=== PATIENT | male | born 1985 | race American Indian/Alaskan Native ===

== ENCOUNTER 2016-11-15 10:41 | Emergency (ER) | payer OTHER ==
--- NOTE | 2016-11-15 11:16 | Emergency Department Report ---
Entered by RONALD LONGORIA, acting as scribe for MICHELLE SINGH NP. Chief Complaint: Abdominal Pain Stated Complaint: LOWER BACK/STOMACH PAIN Time Seen by Provider: 11/15/16 11:07 - HPI History of Present Illness: 31 y/o male, nontoxic, well nourished in appearance, no acute signs of distress presents with intermittent lower back pain, flank pain bilaterally and abd pain that started 3 weeks ago. Pt denies neck stiffness, fever, chills, chest pain, SOB, ZAMORA or dizziness, numbness, tingling. - ROS Review of Systems: Pt notes lower back pain, bilateral flank pain, abd pain Pt denies neck stiffness, fever, chills, chest pain, SOB, ZAMORA or dizziness, numbness, tingling. - Exam Vital Signs: Vital Signs 11/15/16 10:47 Temperature 98.0 F Pulse Rate 71 Respiratory 17 Rate Blood Pressure 123/71 O2 Sat by Pulse 100 Oximetry Physical Exam: Constitutional: Non toxic appearing, NAD. Cardiovascular: Normal rate and rhythm with normal S1/S2 sounds. Respiratory: No respiratory distress. Lung sounds clear to auscultation bilaterally. Abdomen: Soft, nontender, and nondistended. Positive bowel sounds. No hepatosplenomegaly was noted. No guarding or rebound tenderness, negative epigastric bruit. Negative psoas sign, negative kc sign, negative McBurneys sign. Back: No CVA, vertebral or paraspinal tenderness. ROM intact. MSE screening note: Focused history and physical exam performed. Due to findings the following was ordered: Amylase, BMP, CBC, Lipase, UA. ED Disposition for MSE Condition: Stable This documentation as recorded by the scribe,RONALD LONGORIA,accurately reflects the service I personally performed and the decisions made by FRANCISCO lagunas MARTIN, NP.
[2016-11-15 11:29] LABS: Basophils % (Auto) 0.5 % (0.0-1.8); Eosinophils % (Auto) 0.7 % (0.0-4.3); Hematocrit 39.3 % (35.5-45.6); Hemoglobin 12.2 gm/dl (11.8-15.2); Mean Corpuscular HGB Conc 31 % (32-34); Platelet Count 162 K/mm3 (140-440); Red Cell Distribution Width 15.8 % (13.2-15.2); White Blood Count 4.3 K/mm3 (4.5-11.0)
[2016-11-15 11:32] LABS: Mean Corpuscular Hemoglobin 21 pg (28-32); Mean Corpuscular Volume 68 fl (84-94)
[2016-11-15 11:45] LABS: Amylase 57 units/L (27-131); Anion Gap 16 mmol/L; BUN/Creatinine Ratio 9.09; Blood Urea Nitrogen 10 mg/dL (9-20); Carbon Dioxide 26 mmol/L (22-30); Chloride 104.4 mmol/L (98-107); Glucose 97 mg/dL (75-100); Lipase 15 units/L (13-60); Potassium 4.7 mmol/L (3.6-5.0); Sodium 142 mmol/L (137-145)
[2016-11-15] MEDS ORDERED: TORADOL IM ONE (12:56)
[2016-11-15 12:58] LABS: Bilirubin,Urine NEG (Negative); Blood,Urine NEG (Negative); Ketones,Urine NEG (Negative); Leukocyte Esterase,Urine NEG (Negative); Mucus,Urine FEW /HPF; Nitrite,Urine NEG (Negative); Protein,Urine <15 mg/dL mg/dL (Negative); Urobilinogen,Urine < 2.0 mg/dL (<2.0)
--- NOTE | 2016-11-15 13:33 | XRay Report ---
ABDOMEN, 2 views: History: Abdominal pain. There is no evidence of free air beneath the diaphragms. The gas pattern within the abdomen is unremarkable. There is no evidence of bowel dilatation, significant air-fluid levels, or pathologic calcifications. Moderate stool is present throughout the colon. IMPRESSION: Mild constipation.
--- NOTE | 2016-11-15 13:56 | Emergency Department Report ---
HPI - General Chief Complaint: Abdominal Pain Time Seen by Provider: 11/15/16 12:29 - HPI HPI: This is a 31-year-old Afro-[place] male presents to the emergency department with complaint of bilateral lower back pain and occasionally some radiation towards the flanks is been going on for the past 3 weeks. He denies any vomiting, fever, dysuria, constipation, diarrhea, penile discharge. He denies any numbness or paresthesias or any neurological deficits. He has not taken anything for symptoms prior to presentation. He has a past medical history of asthma. No recent travel or sick contacts at home. 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 He denies any chest pain, shortness of breath , lower extremity swelling. He does not have a primary care physician. ED Past Medical Hx - Past Medical History Hx Asthma: Yes - Surgical History Past Surgical History?: No - Social History Smoking Status: Never Smoker Substance Use Type: Alcohol - Medications Home Medications: Home Medications Medication Instructions Recorded Confirmed Last Taken Type ALBUTEROL Inhaler [Proair] 2 puff IH QID PRN 11/15/16 11/15/16 Unknown History ED Review of Systems ROS: Stated complaint: LOWER BACK/STOMACH PAIN Other details as noted in HPI Comment: All other systems reviewed and negative Constitutional: denies: chills, fever Eyes: denies: eye pain, eye discharge, vision change ENT: denies: ear pain, throat pain Respiratory: denies: cough, shortness of breath, wheezing Gastrointestinal: denies: vomiting, diarrhea Genitourinary: denies: urgency, dysuria Musculoskeletal: back pain. denies: arthralgia, myalgia Skin: denies: rash, lesions Neurological: denies: headache, weakness, paresthesias Physical Exam - Physical Exam Vital Signs: Vital Signs 11/15/16 11/15/16 10:47 12:12 Temperature 98.0 F Pulse Rate 71 Respiratory 17 18 Rate Blood Pressure 123/71 O2 Sat by Pulse 100 Oximetry Physical Exam: GENERAL: The patient is well-developed well-nourished. HEENT: Normocephalic. Atraumatic. Extraocular motions are intact. Patient has moist mucous membranes. Pupils equal reactive to light bilaterally. NECK: Supple. Trachea is midline. CHEST/LUNGS: Clear to auscultation. There is no respiratory distress noted. HEART/CARDIOVASCULAR: Regular. There is no tachycardia. There is no gallop rub or murmur. ABDOMEN: Abdomen is soft, nontender. Patient has normal bowel sounds. There is no abdominal distention. SKIN: Skin is warm and dry. NEURO: The patient is awake, alert, and oriented. The patient is cooperative. The patient has no focal neurologic deficits. The patient has normal speech and gait. MUSCULOSKELETAL: There is no tenderness or deformity. There is no limitation range of motion. There is no evidence of acute injury. Muscle strength 5 out of 5 upper and lower extremities including EHL. No midline thoracic or lumbar tenderness to palpation, step-off or deformity. There is some reproducible lower paraspinal lumbar muscle tenderness to palpation. ED Course Vital Signs 11/15/16 11/15/16 10:47 12:12 Temperature 98.0 F Pulse Rate 71 Respiratory 17 18 Rate Blood Pressure 123/71 O2 Sat by Pulse 100 Oximetry ED Medical Decision Making - Lab Data Result diagrams: 11/15/16 11:12 11/15/16 11:12 - Radiology Data Radiology results: image reviewed interpreted by me: Abdominal x-ray shows some nonspecific nonobstructive bowel gas and mild stool throughout the colon. - Medical Decision Making 31-year-old male presents with 3 weeks of lower bilateral back pain and occasionally some radiation towards the flank. He has no midline tenderness to palpation, step-off or deformity. There is no numbness or paresthesias or any neurological deficits. He does not appear to have any of the emergent back condition such as cauda equina, cord compression syndrome or epidural abscess. Vital signs stable throughout his ED course. Abdominal x-ray was done to see if there was any signs of any abnormalities that would show radiation of pain towards the back such as nephrolithiasis or obstruction but there was no acute process seen. He was given a shot of Toradol and upon reevaluation he is feeling improved. He has some taut and slightly tender paraspinal back muscles. 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 He does not appear to be in any acute distress. He'll be given referrals for primary care. He will use Tylenol and/or ibuprofen as necessary. He will return to the ER with any worsening of symptoms or any acute distress. - Differential Diagnosis muscle spasm, muscle strain, sciatica Critical Care Time: No Critical care attestation.: If time is entered above; I have spent that time in minutes in the direct care of this critically ill patient, excluding procedure time. ED Disposition Clinical Impression: Low back pain Qualifiers: Chronicity: chronic Back pain laterality: bilateral Sciatica presence: without sciatica Qualified Code(s): M54.5 - Low back pain; G89.29 - Other chronic pain Disposition: TO HOME OR SELFCARE Is pt being admited?: No Condition: Stable Instructions: Back Pain (ED) Additional Instructions: Please follow-up with a primary care physician in the next few days. Return to the emergency department with any worsening of your symptoms or any acute distress. Referrals: BRO MATSON MD [Staff Physician] - 3-5 Days [facility] [Outside] - 3-5 Days Time of Disposition: 13:57
[2016-11-15 14:24] VITALS: BP 114/74
== END 2016-11-15 14:25 | disposition home or self-care (01) ==
LOC: ED 10:41
DX: M54.5 Low back pain (principal)
CPT/HCPCS: 36415; 74020; 80048; 81001; 82150; 83690; 85025; 96372; 99284; J1885

== ENCOUNTER 2019-06-27 09:52 | Emergency (ER) | payer OTHER ==
[2019-06-27 09:57] VITALS: BP 109/38
--- NOTE | 2019-06-27 11:32 | Emergency Department Report ---
HPI - General Chief Complaint: Abdominal Pain - HPI HPI: 33 yo AA male presents with a few weeks of b/l foot pain and pressure. He also has concern for ingrown toenail of the great toes. Pain increases with wearing shoes. ED Past Medical Hx - Past Medical History Hx Asthma: Yes - Surgical History Past Surgical History?: No - Social History Smoking Status: Never Smoker Substance Use Type: None - Medications Home Medications: Home Medications Medication Instructions Recorded Confirmed Last Taken Type Albuterol INH(or & Nicu Only) 2 puff IH QID PRN 11/15/16 11/15/16 Unknown History [Proair] ED Review of Systems ROS: Stated complaint: FOOT PAIN,STOMACH PAIN Other details as noted in HPI Comment: All other systems reviewed and negative Musculoskeletal: arthralgia. denies: joint swelling Skin: other (ingrown toenail with onychomycosis). denies: rash Physical Exam - Physical Exam Vital Signs: Vital Signs 06/27/19 09:55 Temperature 98.3 F Pulse Rate 73 Respiratory 18 Rate Blood Pressure 109/38 O2 Sat by Pulse 97 Oximetry Physical Exam: Foot: There is mild left mid foot tenderness to palpation. No swelling or deformity. left great toenail has onychomychosis and ingrown nail. +2/4 dorsalis pedis pulse. ED Course Vital Signs 06/27/19 09:55 Temperature 98.3 F Pulse Rate 73 Respiratory 18 Rate Blood Pressure 109/38 O2 Sat by Pulse 97 Oximetry ED Medical Decision Making - Medical Decision Making B/L foot and toe pain. Neurovascularly intact. Great toe ingrown toenail with onychomychosis. No signs of injury. This does not appear to be any emergent or life threatening condition. The patient will be screened out and has been given referrals for podiatry and ortho. Discussed return to the ED with any worsening of symptoms or any acute distress. Critical care attestation.: If time is entered above; I have spent that time in minutes in the direct care of this critically ill patient, excluding procedure time. ED Disposition Clinical Impression: Bilateral foot pain, Onychomycosis of great toe, Ingrown toenail Disposition: MED SCREENING EXAM-LEFT Is pt being admited?: No Condition: Stable Instructions: Ingrown Nail (ED), Arthralgia (ED) Referrals: KHUSHBOO DUMAS DPM [Staff Physician] - 2-3 Days ALEE PINZON MD [Staff Physician] - 2-3 Days TALI RIVERA MD [Staff Physician] - 2-3 Days Time of Disposition: 11:30
== END 2019-06-27 11:30 | disposition left against medical advice (07) ==
LOC: ED 09:52
DX: L60.0 Ingrowing nail (principal); B35.1 Tinea unguium; J45.909 Unspecified asthma, uncomplicated; Z79.899 Other long term (current) drug therapy
CPT/HCPCS: 99281